=== PATIENT | female | born 1965 | race American Indian/Alaskan Native ===

== ENCOUNTER 2017-07-17 13:50 | Inpatient (IN) | payer MEDICARE ==
[2017-07-17] MEDS ORDERED: LOPRESSOR IV ONE (15:04)
[2017-07-17 15:14] LABS: Basophils # (Auto) 0.1 K/mm3 (0.0-0.1); Basophils % (Auto) 1.1 % (0.0-1.8); Eosinophils % (Auto) 0.9 % (0.0-4.3); Hematocrit 42.1 % (30.3-42.9); Hemoglobin 13.8 gm/dl (10.1-14.3); Lymphocytes # (Auto) 1.3 K/mm3 (1.2-5.4); Lymphocytes % (Auto) 25.9 % (13.4-35.0); Mean Corpuscular HGB Conc 33 % (30-34); Mean Corpuscular Hemoglobin 29 pg (28-32); Mean Corpuscular Volume 89 fl (79-97); Monocytes # (Auto) 0.5 K/mm3 (0.0-0.8); Monocytes % (Auto) 10.1 % (0.0-7.3); Platelet Count 307 K/mm3 (140-440); Red Blood Count 4.75 M/mm3 (3.65-5.03); Red Cell Distribution Width 14.2 % (13.2-15.2)
[2017-07-17 15:35] LABS: BUN/Creatinine Ratio 14; Blood Urea Nitrogen 10 mg/dL (7-17); Calcium 9.3 mg/dL (8.4-10.2); Hemolysis Index 7
--- NOTE | 2017-07-17 16:16 | Emergency Department Report ---
ED General Adult HPI - General Chief complaint: Chest Pain Stated complaint: INCREASED HEART RATE/SHORTNESS OF BREATH/CP Time Seen by Provider: 07/17/17 14:45 Source: patient, EMS Mode of arrival: Stretcher Limitations: No Limitations - History of Present Illness Initial comments: Patient is a 51-year-old female past medical history of obesity high blood pressure and depression who presents with shortness of breath and arrhythmia that occurred earlier on today. Patient states that her shortness of breath was moderate she states that she went to her primary care provider and her heart rate was in the 180s. They tried to do Basil Gayathri versus and a lower patient's heart rate to the 120s. Patient has no nausea no vomiting. Pt denies Severity scale (0 -10): 0 - Related Data Previous Rx's Medication Instructions Recorded Last Taken Type Acetaminophen/Codeine 1 tab PO Q6H PRN #15 tab 06/26/14 Unknown Rx [Acetaminophen-Codeine #3 TAB] Amoxicillin [Trimox CAP] 500 mg PO Q8H #30 capsule 06/26/14 Unknown Rx Allergies Allergy/AdvReac Type Severity Reaction Status Date / Time No Known Allergies Allergy Verified 06/25/14 23:30 ED Review of Systems ROS: Stated complaint: INCREASED HEART RATE/SHORTNESS OF BREATH/CP Other details as noted in HPI Constitutional: denies: chills, fever Eyes: denies: eye pain, eye discharge, vision change ENT: denies: ear pain, throat pain Respiratory: shortness of breath. denies: cough, wheezing Cardiovascular: other (arrythmia). denies: chest pain, palpitations Endocrine: no symptoms reported Gastrointestinal: denies: abdominal pain, nausea, diarrhea Genitourinary: denies: urgency, dysuria, discharge Musculoskeletal: denies: back pain, joint swelling, arthralgia Skin: denies: rash, lesions Neurological: denies: headache, weakness, paresthesias Psychiatric: denies: anxiety, depression Hematological/Lymphatic: denies: easy bleeding, easy bruising ED Past Medical Hx - Past Medical History Previous Medical History?: Yes Hx Hypertension: Yes Hx GERD: Yes - Surgical History Past Surgical History?: Yes Additional Surgical History: sinus surgery 06/17/14, tubal ligation 1988 - Social History Smoking Status: Former Smoker Substance Use Type: Alcohol - Medications Home Medications: Home Medications Medication Instructions Recorded Confirmed Last Taken Type Acetaminophen/Codeine 1 tab PO Q6H PRN #15 tab 06/26/14 Unknown Rx [Acetaminophen-Codeine #3 TAB] Amoxicillin [Trimox CAP] 500 mg PO Q8H #30 capsule 06/26/14 Unknown Rx ED Physical Exam - General Limitations: No Limitations General appearance: alert, in no apparent distress - Head Head exam: Present: atraumatic, normocephalic - Eye Eye exam: Present: normal appearance - ENT ENT exam: Present: mucous membranes moist - Neck Neck exam: Present: normal inspection - Respiratory Respiratory exam: Present: normal lung sounds bilaterally. Absent: respiratory distress - Cardiovascular Cardiovascular Exam: Present: normal rhythm, tachycardia. Absent: systolic murmur, diastolic murmur, rubs, gallop - GI/Abdominal GI/Abdominal exam: Present: soft, normal bowel sounds - Extremities Exam Extremities exam: Present: normal inspection - Back Exam Back exam: Present: normal inspection - Neurological Exam Neurological exam: Present: alert, oriented X3 - Psychiatric Psychiatric exam: Present: normal affect, normal mood - Skin Skin exam: Present: warm, dry, intact, normal color. Absent: rash ED Course Vital Signs 07/17/17 07/17/17 07/17/17 14:00 14:08 14:30 Temperature 98.3 F Pulse Rate 96 H 100 H 95 H Respiratory 15 12 13 Rate Blood Pressure 154/88 154/88 O2 Sat by Pulse 95 100 100 Oximetry 07/17/17 07/17/17 07/17/17 14:44 15:00 15:30 Temperature Pulse Rate 98 H 85 Respiratory 10 L 10 L 14 Rate Blood Pressure 151/87 160/90 O2 Sat by Pulse 100 100 Oximetry 07/17/17 15:31 Temperature Pulse Rate 94 H Respiratory Rate Blood Pressure 160/90 O2 Sat by Pulse Oximetry ED Medical Decision Making - Lab Data Result diagrams: 07/17/17 15:03 07/17/17 15:03 Lab Results 07/17/17 07/17/17 Range/Units 15:03 15:03 WBC 5.2 (4.5-11.0) K/mm3 RBC 4.75 (3.65-5.03) M/mm3 Hgb 13.8 (10.1-14.3) gm/dl Hct 42.1 (30.3-42.9) % MCV 89 (79-97) fl MCH 29 (28-32) pg MCHC 33 (30-34) % RDW 14.2 (13.2-15.2) % Plt Count 307 (140-440) K/mm3 Lymph % (Auto) 25.9 (13.4-35.0) % [place] % (Auto) 10.1 H (0.0-7.3) % Eos % (Auto) 0.9 (0.0-4.3) % Baso % (Auto) 1.1 (0.0-1.8) % Lymph # 1.3 (1.2-5.4) K/mm3 [place] # 0.5 (0.0-0.8) K/mm3 Eos # 0.0 (0.0-0.4) K/mm3 Baso # 0.1 (0.0-0.1) K/mm3 Seg Neutrophils % 62.0 (40.0-70.0) % Seg Neutrophils # 3.2 (1.8-7.7) K/mm3 Sodium 141 (137-145) mmol/L Potassium 4.4 (3.6-5.0) mmol/L Chloride 101.0 (98-107) mmol/L Carbon Dioxide 26 (22-30) mmol/L Anion Gap 18 mmol/L BUN 10 (7-17) mg/dL Creatinine 0.7 (0.7-1.2) mg/dL Estimated GFR > 60 ml/min BUN/Creatinine Ratio 14 % Glucose 109 H (65-100) mg/dL Calcium 9.3 (8.4-10.2) mg/dL Troponin T < 0.010 (0.00-0.029) ng/mL - EKG Data -: EKG Interpreted by Ny - EKG Data 07/17/17 17:49 EKG shows tachycardia no ST segment elevation or T-wave inversion normal axis - Medical Decision Making Cdx: SVT ddx: NSTEMI, arrythmia, electrolyte abnormality CBC, CMP, EKG, IV metoprolol, troponin Due to patient having SVT I will admit patient to the hospitalist service. Critical care attestation.: If time is entered above; I have spent that time in minutes in the direct care of this critically ill patient, excluding procedure time. ED Disposition Clinical Impression: SVT (supraventricular tachycardia), SOB (shortness of breath) Disposition: -09 OP ADMIT IP TO THIS HOSP Is pt being admited?: Yes Does the pt Need Aspirin: No Condition: Stable Referrals: PRIMARY CARE,MD [Primary Care Provider] - 3-5 Days
--- NOTE | 2017-07-17 18:14 | XRay Report ---
FINAL REPORT PROCEDURE: XR CHEST 1V AP TECHNIQUE: Chest radiograph anteroposterior view. CPT 78828 HISTORY: Shortness of breath COMPARISON: No prior studies are available for comparison. FINDINGS: Heart: Normal. Mediastinum/Vessels: Normal. Lungs/Pleural space: No infiltrate, effusion, or pneumothorax. Bony thorax: No acute osseous abnormality. Life support devices: None. IMPRESSION: No radiographic evidence of acute cardiopulmonary abnormality.
--- NOTE | 2017-07-17 22:49 | Event Note ---
Date: 07/17/17 See dictated H/p in reports SVT HTN Check ECHO
[2017-07-17] MEDS ORDERED: NACL 0.9% 1000 ML 1,000 ML IV SCH (23:45)
[2017-07-17] MEDS ORDERED: ZOFRAN IV PRN (23:56)
[2017-07-17] MEDS ORDERED: TYLENOL PO PRN (23:56)
[2017-07-17] MEDS ORDERED: PERCOCET 5/325 PO PRN (23:56)
[2017-07-17] MEDS ORDERED: MILK OF MAGNESIA PO PRN (23:56)
[2017-07-17] MEDS ORDERED: DULCOLAX PR PRN (23:56)
[2017-07-17] MEDS ORDERED: AMBIEN PO PRN (23:56)
[2017-07-17] MEDS ORDERED: MORPHINE IV PRN (23:56)
[2017-07-18] MEDS ORDERED: LOPRESSOR PO SCH (02:00)
[2017-07-18 05:14] LABS: Basophils # (Auto) 0.1 K/mm3 (0.0-0.1); Basophils % (Auto) 0.9 % (0.0-1.8); Eosinophils % (Auto) 0.5 % (0.0-4.3); Hematocrit 39.7 % (30.3-42.9); Hemoglobin 13.1 gm/dl (10.1-14.3); Lymphocytes # (Auto) 1.7 K/mm3 (1.2-5.4); Lymphocytes % (Auto) 21.7 % (13.4-35.0); Mean Corpuscular HGB Conc 33 % (30-34); Mean Corpuscular Hemoglobin 29 pg (28-32); Mean Corpuscular Volume 89 fl (79-97); Monocytes # (Auto) 0.7 K/mm3 (0.0-0.8); Platelet Count 307 K/mm3 (140-440); Red Blood Count 4.47 M/mm3 (3.65-5.03); Red Cell Distribution Width 14.5 % (13.2-15.2)
[2017-07-18 05:29] LABS: Alanine Aminotransferase 16 units/L (7-56); Albumin 3.6 g/dL (3.9-5); BUN/Creatinine Ratio 14; Blood Urea Nitrogen 10 mg/dL (7-17); Calcium 8.9 mg/dL (8.4-10.2); Hemolysis Index 4
--- NOTE | 2017-07-18 07:56 | History and Physical Report ---
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 HISTORY OF PRESENT ILLNESS: A 51-year-old female with a past medical history significant for high blood pressure, obesity, and depression, presented with shortness of breath and palpitations. Her shortness of breath was moderate and also, her heart rate was in 180s . The patient was sent here because of the severe tachycardia of 180 per minute. No chest pain. Shortness of breath present. Also feels weak.Had recent w/u for chest pain in [facility] including Echo whuch was normal. PAST MEDICAL HISTORY: Significant for hypertension and gastroesophageal reflux disease. PAST SURGICAL HISTORY: surgery in June 2014, tubal ligation in 1988. SOCIAL HISTORY: Former smoker. Alcohol occasionally. FAMILY HISTORY: Hypertension. REVIEW OF SYSTEMS: HEENT: No sore throat, no postnasal drip. GENERAL: No fever, no weight loss, no anorexia. NECK: No neck stiffness or neck pain. ABDOMEN: Soft. RESPIRATORY: No rhonchi and no wheezing. CARDIOVASCULAR: Palpitations and shortness of breath present. No chest pain. GASTROINTESTINAL: No nausea, no vomiting, no diarrhea. GENITOURINARY: No dysuria. MUSCULOSKELETAL: No flank pains, no muscle pains. SKIN: No rashes. A 14-point review of systems done, essentially negative other than palpitations and shortness of breath. PHYSICAL EXAMINATION: GENERAL: Middle-aged female, cooperative during examination. VITAL SIGNS: Blood pressure is 142/83, temperature is 98, pulse is 78, respirations are 12. HEENT: Unremarkable. Pupils are equal and reactive. NECK: Supple, no lymphadenopathy, no thyromegaly. LUNGS: Clear to auscultation and percussion. CARDIOVASCULAR: S1, S2 heard. Fast heart rate. Could count up to 130-140 range. ABDOMEN: Soft and benign. No hepatosplenomegaly. No guarding, no rigidity. Hernial orifices are normal. EXTREMITIES: Good pedal pulses. No pedal edema. CENTRAL NERVOUS SYSTEM: No focal deficits. LABORATORY DATA: White count is 5200, H and H are 13.8 and 42.1, platelet count is 307,000. Sodium is 141, potassium is 4.4, glucose is 109, BUN and creatinine is 10 and 0.7. EKG shows sinus tachycardia. No ST segment elevations or T-wave inversions. ASSESSMENT AND PLAN: 1. Supraventricular tachycardia. The patient to be continued on Lopressor 50 q.12 h. .Cardiology consult requested. 2. Hypertension. The patient to be continued on losartan 100 mg daily. 3. Gastroesophageal reflux disease. 4.Dvt prophylaxis JOB# [id number] VSM/SINDI MTDD
--- NOTE | 2017-07-18 08:56 | Consultation ---
History of Present Illness Consult date: 07/18/17 Consult reason: tachycardia History of present illness: 51 year old female presenting with palpitations and shortness of breath. ECG showing short RP tachycardia with a narrow QRS complex. Patient denies previous episodes of SVT. She admits drinking two bottle of wine and champagne with her yesterday. Patient is currently asymptomatic and in sinus rhythm. September 2016, she was hospitalized at [place] for atypical chest pain. Echo and SPECT imaging revealed normal LVEF and no ischemic respectively. Past History Past Medical History: hypertension, other (depression) Past Surgical History: No surgical history Social history: alcohol abuse Family history: hypertension Medications and Allergies Allergies Allergy/AdvReac Type Severity Reaction Status Date / Time No Known Allergies Allergy Verified 06/25/14 23:30 Home Medications Medication Instructions Recorded Confirmed Last Taken Type Losartan/Hydrochlorothiazide 1 tab PO DAILY 07/17/17 07/17/17 07/16/17 History [Losartan-Hctz 100-25 mg Tab] Active Meds: Active Medications Acetaminophen (Tylenol) 650 mg PO Q4H PRN PRN Reason: Pain MILD(1-3)/Fever >100.5/LAY Bisacodyl (Dulcolax) 10 mg [place] QDAY PRN PRN Reason: Constipation unrelieved by MOM Enoxaparin Sodium (Lovenox) 40 mg SUB-Q QDAY [facility] Sodium Chloride (Nacl 0.9% 1000 Ml) 1,000 mls @ 75 mls/hr IV DIRECT [facility] Last Admin: 07/18/17 02:55 Dose: 75 mls/hr Magnesium Hydroxide (Milk Of Magnesia) 30 ml PO Q4H PRN PRN Reason: Constipation Metoprolol Tartrate (Lopressor) 50 mg PO BID [facility] Last Admin: 07/18/17 02:54 Dose: 50 mg Morphine Sulfate (Morphine) 2 mg IV Q4H PRN PRN Reason: Pain, Moderate (4-6) Ondansetron HCl (Zofran) 4 mg IV Q8H PRN PRN Reason: N/V unrelieved by Reglan Oxycodone/Acetaminophen (Percocet 5/325) 1 tab PO Q6H PRN PRN Reason: Pain, Moderate (4-6) Zolpidem Tartrate (Ambien) 5 mg PO QHS PRN PRN Reason: Insomnia Review of Systems All systems: negative Physical Examination Vital Signs Pulse Resp Pulse Ox 96 H 15 95 07/17/17 14:00 07/17/17 14:00 07/17/17 14:00 General appearance: no acute distress HEENT: Positive: PERRL Neck: Positive: neck supple Cardiac: Positive: Reg Rate and Rhythm Lungs: Positive: Normal Exam Neuro: Positive: Grossly Intact Abdomen: Positive: Soft Extremities: Present: edema Results 07/18/17 04:37 07/18/17 04:37 Cardiac Enzymes 07/18/17 Range/Units 04:37 AST 16 (5-40) units/L CBC 07/17/17 07/18/17 Range/Units 15:03 04:37 WBC 5.2 7.8 (4.5-11.0) K/mm3 RBC 4.75 4.47 (3.65-5.03) M/mm3 Hgb 13.8 13.1 (10.1-14.3) gm/dl Hct 42.1 39.7 (30.3-42.9) % Plt Count 307 307 (140-440) K/mm3 Lymph # 1.3 1.7 (1.2-5.4) K/mm3 [place] # 0.5 0.7 (0.0-0.8) K/mm3 Eos # 0.0 0.0 (0.0-0.4) K/mm3 Baso # 0.1 0.1 (0.0-0.1) K/mm3 Comprehensive Metabolic Panel 07/17/17 07/18/17 Range/Units 15:03 04:37 Sodium 141 139 (137-145) mmol/L Potassium 4.4 3.8 (3.6-5.0) mmol/L Chloride 101.0 102.1 (98-107) mmol/L Carbon Dioxide 26 24 (22-30) mmol/L BUN 10 10 (7-17) mg/dL Creatinine 0.7 0.7 (0.7-1.2) mg/dL Glucose 109 H 131 H (65-100) mg/dL Calcium 9.3 8.9 (8.4-10.2) mg/dL AST 16 (5-40) units/L ALT 16 (7-56) units/L Alkaline Phosphatase 49 (35-129) units/L Total Protein 6.6 (6.3-8.2) g/dL Albumin 3.6 L (3.9-5) g/dL - EKG Interpretation EKG: sinus rhythm EKG interpretations - Telemetry EKG Rhythm: Sinus Rhythm Assessment and Plan Short RP tachycardia c/w AVNRT Shortness of breath Normal LVEF 09/2016 Normal MPI 09/2016 Systemic Hypertension Alcohol abuse Depression Chronic LE edema due to venous insufficiency Recommendations: Start toprol XL 50 mg po daily (patient denies cocaine use) Check D-Dimer If negative patient may go home; otherwise, she will need either a VQ scan or a CTA chest PE protocol Advised against alcohol binging No further cardiac work-up is needed
--- NOTE | 2017-07-18 09:44 | Discharge Summary ---
Providers - Providers Date of Admission: 07/17/17 23:56 Attending physician: BRIANNA MENDOZA MD 07/17/17 23:56 Consult to Physician [CONS] Routine Consulting Provider: RACHID BERNARD Reason For Exam: SVT Place consult to:: Dr. Bernard..Dr. Schuster Notified:: Answering Service Phone number called:: [phone] Primary care physician: BROKERAGE OFFICE MANAGER Hospitalization Reason for admission: CARDICA ARRYTHMIA Condition: Stable Hospital course: Patient is a 51 year old female with hx of obesity, HTN and depression presenting with palpitations and shortness of breath. ECG showing short RP tachycardia with a narrow QRS complex. Patient denies previous episodes of SVT. She admits drinking two bottle of wine and champagne with her yesterday. Patient is currently asymptomatic and in sinus rhythm. September 2016, she was hospitalized at [place] for atypical chest pain. Echo and SPECT imaging revealed normal LVEF and no ischemic respectively. Her symptoms improved with initiation of toprol by cardiology, D dimer was checked and negative. pateint was counselled for 15 mins about need to quit Etoh and she verablized understanding. Discharge Diagnosis Short RP tachycardia c/w AVNRT Acute Respiratory Distress Systemic Hypertension Alcohol abuse Depression Chronic LE edema due to venous insufficiency Disposition: DC-01 TO HOME OR SELFCARE Time spent for discharge: 35 mins Core Measure Documentation - Palliative Care Palliative Care/ Comfort Measures: Not Applicable - Core Measures Any of the following diagnoses?: none - VTE Discharge Requirements Deep Vein Thrombosis/Pulmonary Embolism Present on Admission: No Exam - Constitutional Vitals: Temp Pulse Resp BP Pulse Ox 98.3 F 79 11 L 159/82 100 07/17/17 14:08 07/18/17 09:00 07/18/17 09:00 07/18/17 09:00 07/18/17 09:00 General appearance: Present: no acute distress, well-nourished - EENT Eyes: Present: PERRL, EOM intact ENT: hearing intact, clear oral mucosa - Neck Neck: Present: supple, normal ROM - Respiratory Respiratory effort: normal Respiratory: bilateral: CTA - Cardiovascular Rhythm: regular Heart Sounds: Present: S1 & S2. Absent: systolic murmur, diastolic murmur - Extremities Extremities: no ischemia, pulses intact, pulses symmetrical, No edema, Full ROM Peripheral Pulses: within normal limits - Abdominal General gastrointestinal: Present: soft, non-tender, non-distended, normal bowel sounds - Integumentary Integumentary: Present: clear, warm, dry - Musculoskeletal Musculoskeletal: strength equal bilaterally - Psychiatric Psychiatric: appropriate mood/affect, intact judgment & insight, cooperative - Neurologic Neurologic: CNII-XII intact, moves all extremities Plan Activity: advance as tolerated, fall precautions Diet: low fat Follow up with: [facility] [Provider Group] - 7 Days Prescriptions: Metoprolol Xl [Metoprolol SUCCINATE ER TAB] 50 mg PO QDAY #30 tablet Valsartan [Diovan] 160 mg PO QDAY #30 tablet
[2017-07-18] MEDS ORDERED: TOPROL XL PO SCH (10:00)
[2017-07-18] MEDS ORDERED: LOVENOX SUB-Q SCH (10:00)
[2017-07-18 11:57] VITALS: BP 158/80
--- NOTE | 2017-07-18 13:40 | Query- General ---
Lizz Vasquez Oren Date:____07/18/17 System Developer Associate Manager/YASH: [place] Phone#:___[phone] Exercise your independent professional judgment when responding to this query. Questions asked do not imply a particular answer is desired or expected. We greatly appreciate your clarification on this issue. Clinical Documentation States: 51 year old female was admitted on 07/17/17 The Cardiology consult note states " 51 year old female presenting with palpitations and shortness of breath. ECG showing short RP tachycardia with a narrow QRS complex. Patient denies previous episodes of SVT Assessment and Plan Short RP tachycardia c/w AVNRT " Clinical Findings Show (include reference to source document): BMI : 40.4 Given the above clinical scenario can you please provide an appropriate diagnosis based on your knowledge of the patient: PHYSICIAN RESPONSE: [ ] Obesity [ x] Morbid Obesity [ ] Other (Please specify) [ ] Clinically undeterminable Present on Admission: [ x] Yes (Y) [ ] Clinically undeterminable (W) [ ]No(N) Please also document response in your Progress Notes and/or Discharge Summary and indicate if the condition was present on admission. MTDD
== END 2017-07-18 12:17 | disposition home or self-care (01) | DRG 309 ==
LOC: ED 13:50 → 4A 23:56
PROVIDERS: ADMIT Internal Medicine; ATTEND Internal Medicine
DX: I47.1 Supraventricular tachycardia (principal); Z68.41 Body mass index [BMI] 40.0-44.9, adult; I10 Essential (primary) hypertension; K21.9 Gastro-esophageal reflux disease without esophagitis; F10.10 Alcohol abuse, uncomplicated; R06.03 Acute respiratory distress; E66.01 Morbid (severe) obesity due to excess calories; F32.9 Major depressive disorder, single episode, unspecified; I87.2 Venous insufficiency (chronic) (peripheral); Z98.51 Tubal ligation status; Z87.891 Personal history of nicotine dependence; Z82.49 Family history of ischemic heart disease and other diseases of the circulatory system
CPT/HCPCS: 36415; 71045; 80048; 80053; 83036; 83735; 84443; 84484; 85025; 85379; 93005; 93010; J1650; J7030